=== PATIENT | male | born 1975 ===

== ENCOUNTER → 2018-01-04 21:07 | Outpatient (REF) | payer OTHER, SELFPAY ==
[2018-01-04 21:37] LABS: Add Manual Diff / Slide Review NO; Basophils Percent Auto 0.6 % (0-2); Eosinophils Percent Auto 1.6 % (2-4); Hematocrit 43.8 % (41-53); Hemoglobin 15.3 g/dL (13.5-17.5); Lymphocytes Percent Auto 38.1 % (25-40); Mean Corpuscular HGB Conc 34.8 % (30-36); Mean Corpuscular Hemoglobin 31.1 PG (26-34); Mean Corpuscular Volume 89.4 fL (80-100); Neutrophils Absolute Auto 3500 /uL (3000-5900); Neutrophils Percent Auto 52.7 % (50-75); Platelet Count 201 X10^3/uL (150-400); Red Blood Cell Count 4.91 X10^6/uL (4.5-5.9); White Blood Cell Count 6.7 X10^3/uL (4.5-11.0)
[2018-01-06 12:37] LABS: Sex Hormone Binding Globulin 36 nmol/L (10-50)
[2018-01-06 15:00] LABS: Estradiol 25 pg/mL (< 40)
[2018-01-07 14:10] LABS: Dehydroepiandrosterone Sulfate 82 mcg/dL (70-495)
[2018-01-07 15:26] LABS: PSA Total 0.86 ng/mL (< 4.01)
[2018-01-08 18:16] LABS: Testosterone Free 24.7 pg/mL (35.0-155.0); Testosterone Total 164 ng/dL (250-1100)
== END ==
LOC: LAB 21:07
PROVIDERS: Visit Provider Naturopath
DX: E29.1 Testicular hypofunction (principal); F41.1 Generalized anxiety disorder; M51.06 Intervertebral disc disorders with myelopathy, lumbar region; M76.61 Achilles tendinitis, right leg
CPT/HCPCS: 82627; 82670; 82728; 84153; 84154; 84270; 84402; 84403; 85025

== ENCOUNTER → 2018-07-12 21:40 | Outpatient (ROUT) | payer OTHER, SELFPAY ==
[2018-07-12 22:42] LABS: Add Manual Diff / Slide Review NO; Basophils Absolute Auto 0 /uL (0-100); Basophils Percent Auto 0.7 % (0-2); Eosinophils Absolute Auto 100 /uL (0-450); Hematocrit 53.8 % (41-53); Hemoglobin 18.1 g/dL (13.5-17.5); Lymphocytes Absolute Auto 1600 /uL (1100-4500); Lymphocytes Percent Auto 23.9 % (25-40); Mean Corpuscular HGB Conc 33.7 % (30-36); Mean Corpuscular Hemoglobin 31.1 PG (26-34); Mean Corpuscular Volume 92.5 fL (80-100); Monocytes Absolute Auto 400 /uL (0-900); Monocytes Percent Auto 5.8 % (3-14); Neutrophils Absolute Auto 4500 /uL (1500-7000); Neutrophils Percent Auto 67.6 % (50-75); Platelet Count 214 X10^3/uL (150-400); Red Blood Cell Count 5.82 X10^6/uL (4.5-5.9); Red Cell Distribution Width 13.9 % (11.6-14.8); White Blood Cell Count 6.7 X10^3/uL (4.5-11.0)
[2018-07-12 23:36] LABS: Estradiol, Total 18.9 pg/mL
[2018-07-15 15:08] LABS: PSA Total 0.93 ng/mL (< 4.01)
[2018-07-20 14:42] LABS: Sex Hormone Binding Globulin 33.9; Testosterone,Free 8.2
== END ==
PROVIDERS: Visit Provider Naturopath
DX: E29.1 Testicular hypofunction (principal)
CPT/HCPCS: 36415; 82670; 84153; 84154; 84270; 84402; 84403; 85025